=== PATIENT | female | born 1980 | race Caucasian/White ===

== ENCOUNTER 2017-12-18 14:19 | Emergency (ER) | payer MEDICAID ==
[~2017-12-18] VITALS: Ht 157.5 cm; Wt 104.5 kg
[2017-12-18] MEDS ORDERED: LEVO125 PO (14:36)
[2017-12-18] MEDS ORDERED: LIDOCAINE HCL 1% 10 ML VIAL INJ ONE (15:15)
[2017-12-18] MEDS ORDERED: POVIDONE-IODINE 10% 15 ML SOLUTION UD TP ONE (15:15)
[2017-12-18] MEDS ORDERED: IBUPROFEN 800 MG TABLET PO ONE (15:30)
[2017-12-18 16:46] VITALS: BP 132/74
== END 2017-12-18 16:49 | disposition home or self-care (01) ==
LOC: EMS 14:20
DX: S81.812A Laceration without foreign body, left lower leg, initial encounter (principal); E03.9 Hypothyroidism, unspecified; F17.210 Nicotine dependence, cigarettes, uncomplicated; F12.90 Cannabis use, unspecified, uncomplicated; W20.8XXA Other cause of strike by thrown, projected or falling object, initial encounter; Y93.89 Activity, other specified; Y92.89 Other specified places as the place of occurrence of the external cause; Y99.8 Other external cause status
CPT/HCPCS: 12002; 99283; J3490